=== PATIENT | female | born 1940 | race Caucasian/White ===

== ENCOUNTER 2018-11-17 16:05 | Emergency (ER) | payer MEDICARE ==
[~2018-11-17] VITALS: Ht 162.6 cm; Wt 60.3 kg
--- NOTE | 2018-11-17 16:45 | NUR ---
pt rec'd to er c/o abd for 3 days n/v diarrhea for 2 days went to urgent care had zofran and iv fluids told to come to the er for ct of abd. AWAITING EVALUATION BY ER PROVIDER.
[2018-11-17 16:58] LABS: BASOPHILS % (AUTO) 0.1 % (0.0-2.0); EOSINOPHILS % (AUTO) 1.1 % (0.0-6.0); HEMATOCRIT 41 % (33-45); HEMOGLOBIN 13.6 g/dL (11.5-14.8); LYMPHOCYTES # (AUTO) 0.4 /CMM (0.8-4.8); LYMPHOCYTES % (AUTO) 3.1 % (20.0-44.0); MEAN CORPUSCULAR HGB CONC 33 g/dl (31.0-36.0); MEAN CORPUSCULAR VOLUME 92 fL (82-100); MONOCYTES # (AUTO) 0.6 /CMM (0.1-1.30); MONOCYTES % (AUTO) 4.1 % (2.0-12.0); NEUTROPHILS # (AUTO) 12.9 /CMM (1.8-8.9); NEUTROPHILS % (AUTO) 91.6 % (43.0-81.0); PLATELET COUNT (AUTO) 261 /CMM (150-450); RED BLOOD CELL COUNT(AUTO) 4.48 MIL/uL (4.0-5.2); WHITE BLOOD COUNT (AUTO) 14.1 K/uL (4.3-11.0)
[2018-11-17] MEDS ORDERED: ONDANSETRON HCL/PF 4 MG/2 ML VIAL ONE (16:58)
[2018-11-17] MEDS ORDERED: ONDANSETRON HCL/PF 4 MG/2 ML VIAL IVP ONE (17:00)
[2018-11-17] MEDS ORDERED: IV NS 0.9% 1,000 ML BAG IV ONE (17:00)
--- NOTE | 2018-11-17 17:03 | NUR ---
pt iv started rt wrist 20g iv labs drawn sent to lab [facility] AWAITING EVALUATION BY ER PROVIDER.
[2018-11-17 17:07] LABS: CALCIUM, SERUM 8.3 mg/dL (8.5-10.1); CARBON DIOXIDE 26 mmol/L (21-32); CHLORIDE 107 mmol/L (98-107); CREATININE 0.9 mg/dL (0.6-1.3); GLUCOSE 114 mg/dL (74-106); POTASSIUM 4.1 mmol/L (3.5-5.1); SODIUM SERUM 141 mmol/L (136-145); UREA NITROGEN, BLOOD 14 mg/dL (7-18)
[2018-11-17 17:18] LABS: ALANINE AMINOTRANSFERASE 33 U/L (12-78); ALBUMIN 3.5 g/dL (3.4-5.0); ALKALINE PHOSPHATASE 81 U/L (46-116); ASPARTATE AMINOTRANSFERASE 15 U/L (15-37); BILIRUBIN,DIRECT 0.1 mg/dL (0.0-0.2); BILIRUBIN,TOTAL 0.7 mg/dL (0.2-1.0); LIPASE 96 U/L (73-393); TOTAL PROTEIN, SERUM 6.5 g/dL (6.4-8.2)
[2018-11-17] MEDS ORDERED: CT SWABBABLE VALVE TRANS SET 1 EA INFUS.SET MC ONE (17:18)
[2018-11-17] MEDS ORDERED: IOHEXOL-300 100 ML VIAL IV ONE (17:18)
[2018-11-17] MEDS ORDERED: IV NS 0.9% 250 ML IV ONE (17:18)
--- NOTE | 2018-11-17 17:25 | NUR ---
pt sent to ct
--- NOTE | 2018-11-17 17:42 | NUR ---
pt back from ct iv infusing rt wrist site good
--- NOTE | 2018-11-17 18:07 | NUR ---
pt up amb to br diarrhea pads given backn to bed iv infusing lrt wrist site good
[2018-11-17] MEDS ORDERED: EZET10TA32 PO (18:09)
[2018-11-17] MEDS ORDERED: BUPR-51 PO (18:09)
[2018-11-17] MEDS ORDERED: ROSU40TA23 PO (18:09)
[2018-11-17] MEDS ORDERED: LOPERAMIDE HCL (2 MG CAP) 2 MG CAPSULE PO ONE ×2 (18:30→19:00)
--- NOTE | 2018-11-17 19:01 | NUR ---
pt talking on phone given imodium 2 mg po for diarrhea
--- NOTE | 2018-11-17 19:15 | NUR ---
IV removed. Catheter intact and site benign. Pressure and 4x4 applied to site. No bleeding noted.PT. VERBALIZED UNDERSTANDING OF AFTERCARE INSTRUCTIONS.
[2018-11-17 19:16] VITALS: BP 122/49
== END 2018-11-17 19:17 | disposition home or self-care (01) ==
LOC: ER 16:05
DX: J02.9 Acute pharyngitis, unspecified (principal); R19.7 Diarrhea, unspecified; E78.00 Pure hypercholesterolemia, unspecified; K21.9 Gastro-esophageal reflux disease without esophagitis; Z90.710 Acquired absence of both cervix and uterus; Z88.5 Allergy status to narcotic agent; Z88.8 Allergy status to other drugs, medicaments and biological substances; Z79.899 Other long term (current) drug therapy
CPT/HCPCS: 36415; 74177; 80048; 80076; 83605; 83690; 85025; 96361; 96374; 99284; J2405; J7030; J7050; Q9967